=== PATIENT | female | born 1980 | race Caucasian/White ===

== ENCOUNTER 2021-02-08 09:31 | Emergency (ER) | payer BC ==
[~2021-02-08] VITALS: Ht 170.2 cm; Wt 125.0 kg
[~2021-02-08 09:31] MED LIST: PRENATAL1 TA2 PO
[2021-02-08 09:40] VITALS: TEMP 99.4
[2021-02-08 12:40] VITALS: BP 122/77; PULSE 97
== END 2021-02-08 12:40 | disposition home or self-care (01) ==
LOC: COL.ER 09:31
DX: U07.1 COVID-19 (principal)
CPT/HCPCS: J7030; Q0247

== ENCOUNTER → 2023-02-21 | Outpatient (CLI) | payer BC | LOC: CANSCHCLI → MC.RAD 13:40 | DX: Z12.31 Encounter for screening mammogram for malignant neoplasm of breast (principal); N63.22 Unspecified lump in the left breast, upper inner quadrant ==